=== PATIENT | female | born 1985 | race African-American/Black ===

== ENCOUNTER 2016-11-01 17:25 | Emergency (ER) | payer SELFPAY ==
--- NOTE | 2016-11-01 17:50 | ER Document Report ---
ED GI/ - General Chief Complaint: Vaginal Bleeding Stated Complaint: VAGINAL BLEEDING Information source: Patient TRAVEL OUTSIDE OF THE [place] IN LAST 30 DAYS: No - HPI Patient complains to provider of: Vaginal bleeding Onset: Other - 3 days Timing/Duration: Sudden, Intermittent Quality of pain: No pain Notes: 11/01/16 19:28 Patient is a 31-year-old female who presents to the emergency room complaining of vaginal spotting, she had a regular period earlier in the month, and over the past week has had some spotting, she denies any pain, the spotting started after having intercourse she denies painful intercourse, no injury or trauma, no pain or burning with urination, denies being - Related Data Allergies/Adverse Reactions: acetaminophen [From Percocet] Allergy (Verified 11/01/16 17:28) oxycodone HCl [From Percocet] Allergy (Verified 11/01/16 17:28) Past Medical History - General Information source: Patient Last Menstrual Period: 10/20/2016-10/28/2016 - Social History Smoking Status: Unknown if Ever Smoked Family History: Reviewed & Not Pertinent Patient has suicidal ideation: No Patient has homicidal ideation: No Renal/ Medical History: Denies: Hx Peritoneal Dialysis - Immunizations Hx Diphtheria, Pertussis, Tetanus Vaccination: Yes Review of Systems - Review of Systems Constitutional: No symptoms reported EENT: No symptoms reported Cardiovascular: No symptoms reported Respiratory: No symptoms reported Gastrointestinal: No symptoms reported Genitourinary: No symptoms reported Female Genitourinary: See HPI Musculoskeletal: No symptoms reported Skin: No symptoms reported Hematologic/Lymphatic: No symptoms reported Neurological/Psychological: No symptoms reported -: Yes All other systems reviewed and negative Physical Exam - Vital signs Vitals: Temp Pulse Resp BP Pulse Ox 98.3 F 75 16 151/76 H 99 11/01/16 17:29 11/01/16 17:29 11/01/16 17:29 11/01/16 17:29 11/01/16 17:29 - Notes Notes: - General General appearance: Appears well, Alert In distress: None - HEENT Head: Normocephalic, Atraumatic Eyes: Normal Conjunctiva: Normal Extraocular movements intact: Yes Eyelashes: Normal Pupils: PERRL - Respiratory Respiratory status: No respiratory distress - Cardiovascular Rhythm: Regular - Abdominal Inspection: Normal - Back Back: Normal - Extremities General upper extremity: Normal inspection General lower extremity: Normal inspection - Neurological Neuro grossly intact: Yes Orientation: AAOx4 [place] Coma Scale Eye Opening: Spontaneous [place] Coma Scale Verbal: Oriented [place] Coma Scale Motor: Obeys Commands [place] Coma Scale Total: 15 - Psychological Associated symptoms: Normal affect, Normal mood - Skin Skin Temperature: Warm Skin Moisture: Dry Skin Color: Normal Course - Vital Signs Vital signs: Temp Pulse Resp BP Pulse Ox 98.3 F 75 16 151/76 H 99 11/01/16 17:29 11/01/16 17:29 11/01/16 17:29 11/01/16 17:29 11/01/16 17:29 - Laboratory Result Diagrams: 11/01/16 18:28 11/01/16 18:28 Laboratory results interpreted by me: 11/01/16 11/01/16 11/01/16 18:28 18:28 18:28 WBC 18.4 H Absolute Neutrophils 13.2 H Chloride 108 H Urine Blood LARGE H Discharge - Discharge Clinical Impression: Dysfunctional uterine bleeding Condition: Stable Disposition: HOME, SELF-CARE Instructions: Dysfunctional Uterine Bleeding ([facility]), [facility]-Ship Jo[employer] Doctors Additional Instructions: Follow up with your primary care provider and SPORTS EQUIPMENT REPAIRER in one to 2 days. Return to the emergency room immediately if symptoms worsen or any additional concerns.
[2016-11-01 18:46] LABS: APPEARANCE,URINE SLIGHTLY-CLOUDY; BILIRUBIN,URINE NEGATIVE (NEGATIVE); GLUCOSE, URINE NEGATIVE (NEGATIVE); KETONES,URINE NEGATIVE (NEGATIVE); LEUKOCYTE ESTERASE,URINE NEGATIVE (NEGATIVE); NITRITE,URINE NEGATIVE (NEGATIVE); PROTEIN,URINE NEGATIVE (NEGATIVE); URINE SPECIFIC GRAVITY 1.015; UROBILINOGEN,URINE NEGATIVE mg/dL (<2.0)
[2016-11-01 18:50] LABS: ABSOLUTE BASOPHILS # (AUTO) 0.1 10^3/uL (0.0-0.2); ABSOLUTE EOSINOPHILS # (AUTO) 0.4 10^3/uL (0.0-0.6); ABSOLUTE LYMPHOCYTES (AUTO) 3.6 10^3/uL (0.5-4.7); ABSOLUTE NEUT (AUTO) 13.2 10^3/uL (1.7-8.2); BASOPHILS % (AUTO) 0.3 % (0-2); EOSINOPHILS % (AUTO) 2.4 % (0-6); HEMATOCRIT 43.6 % (36.0-47.0); HEMOGLOBIN 14.1 g/dL (12.0-15.5); HGB HCT DIFFERENCE -1.3; LYMPHOCYTES % (AUTO) 19.7 % (13-45); MEAN CORPUSCULAR HEMOGLOBIN 29.8 pg (27.0-33.4); MEAN CORPUSCULAR HGB CONC 32.3 g/dL (32.0-36.0); MEAN CORPUSCULAR VOLUME 92 fl (80-97); MONOCYTES % (AUTO) 5.6 % (3-13); RED BLOOD COUNT 4.73 10^6/uL (3.72-5.28); WHITE BLOOD COUNT 18.4 10^3/uL (4.0-10.5)
[2016-11-01 19:08] LABS: ALANINE AMINOTRANSFERASE 29 U/L (9-52); ALBUMIN 4.2 g/dL (3.5-5.0); ALKALINE PHOSPHATASE 92 U/L (38-126); ANION GAP 10 (5-19); ASPARTATE AMINO TRANSFERASE 19 U/L (14-36); BILIRUBIN,DIRECT 0.4 mg/dL (0.0-0.4); BILIRUBIN,TOTAL 1.1 mg/dL (0.2-1.3); BLOOD UREA NITROGEN 14 mg/dL (7-20); CALCIUM 9.7 mg/dL (8.4-10.2); CARBON DIOXIDE 22 mmol/L (22-30); CHLORIDE 108 mmol/L (98-107); CREATININE RESULT 0.88 mg/dL (0.52-1.25); GLUCOSE 82 mg/dL (75-110); POTASSIUM 4.3 mmol/L (3.6-5.0); SODIUM 140.1 mmol/L (137-145); TOTAL PROTEIN 7.5 g/dL (6.3-8.2)
[2016-11-01 20:16] VITALS: BP 126/78
== END 2016-11-01 19:30 | disposition home or self-care (01) ==
LOC: ER 17:25
DX: N93.8 Other specified abnormal uterine and vaginal bleeding (principal); Z88.6 Allergy status to analgesic agent
CPT/HCPCS: 36415; 80053; 81001; 81025; 85025; 99284

== ENCOUNTER 2017-12-19 03:09 | Emergency (ER) | payer SELFPAY ==
[2017-12-19 03:15] VITALS: BP 148/84
--- NOTE | 2017-12-19 03:45 | ER Document Report ---
ED General - General Chief Complaint: Swelling Stated Complaint: FACIAL SWELLING Time Seen by Provider: 12/19/17 03:34 Notes: Patient is a 32-year-old female presents with complaint of swelling left side of his face is more around the left eye. Eyeball itself is not painful and she does not have any pain with movement of the eyeball. She first noticed swelling yesterday. She will be itching over the area. On the areas more red and swollen. No purulent drainage from the eye. No redness to the eye. No recent skin breakdown that she is aware of. No exposure to any new medications or foods. No other complaints at this time. No dental pain. TRAVEL OUTSIDE OF THE [place] IN LAST 30 DAYS: No - Related Data Allergies/Adverse Reactions: acetaminophen [From Percocet] Allergy (Verified 11/01/16 17:28) oxycodone HCl [From Percocet] Allergy (Verified 11/01/16 17:28) Past Medical History - Social History Smoking Status: Never Smoker Chew tobacco use (# tins/day): No Frequency of alcohol use: None Drug Abuse: None Family History: Reviewed & Not Pertinent Patient has suicidal ideation: No Patient has homicidal ideation: No Renal/ Medical History: Denies: Hx Peritoneal Dialysis - Immunizations Hx Diphtheria, Pertussis, Tetanus Vaccination: Yes Review of Systems - Review of Systems Notes: My Normal Review Basic REVIEW OF SYSTEMS: CONSTITUTIONAL : Denies fever, chills, or sweats. Denies recent illness. EENT: swelling on the left side of face. CARDIOVASCULAR: Denies chest pain. Respiratory: No difficulty breathing. Neuro: Denies headache. Denies weakness or paralysis or loss of use of either side. Denies problems with gait or speech. Denies sensory or motor loss. PSYCHIATRIC: Denies anxiety or stress or depression. ALL OTHER SYSTEMS REVIEWED AND NEGATIVE. Physical Exam - Vital signs Vitals: Temp Pulse Resp BP Pulse Ox 98.6 F 71 20 148/84 H 97 12/19/17 03:14 12/19/17 03:14 12/19/17 03:14 12/19/17 03:14 12/19/17 03:14 - Notes Notes: General Appearance: Well nourished, alert, cooperative, no acute distress, no obvious discomfort. Well-appearing. Vitals: reviewed, See vital signs table. Head: Patient has a small amount of swelling and redness on the face that is around the lateral aspect and inferior aspect of the left eye. The eye itself is not red or swollen. Redness and swelling is only on the skin around the orbit of the eye. Patient does not have any pain with extraocular movement. No purulent drainage. Eyes: PERRL, EOMI, Conjuctiva clear Neck: Supple, no neck tenderness, No thyromegaly Mouth: No significant dental cavities. No swelling intraorally. Skin: warm, dry, appropriate color, no rash Neuro: speech clear, oriented x 3, normal affect, responds appropriately to questions. Course - Re-evaluation Re-evalutation: 12/19/17 05:12 Patient's findings consistent with an early periorbital cellulitis. She has no pain with extraocular motion. I suspect this probably is a periorbital cellulitis however it is possible this could just be a localized allergic reaction; however, she is not having itching or redness anywhere else on her body. She is not aware of any exposures that could cause allergic reaction. We therefore will treat her with clindamycin. I strongly encouraged her return to ER if she is spreading swelling or redness, pain with movement of the eye, or she feels unwell. Patient agrees with plan will be discharged home. Dictation of this chart was performed using voice recognition software; therefore, there may be some unintended grammatical errors. - Vital Signs Vital signs: Temp Pulse Resp BP Pulse Ox 98.6 F 71 20 148/84 H 97 12/19/17 03:14 12/19/17 03:14 12/19/17 03:14 12/19/17 03:14 12/19/17 03:14 Discharge - Discharge Clinical Impression: Periorbital cellulitis of left eye Condition: Good Disposition: HOME, SELF-CARE Additional Instructions: Please take the antibiotic as prescribed. Please return to the ER immediately if you have spreading redness, increased swelling, or any pain with movement of the eye. Follow up wiht a doctor in 2-3 days for reevaluation. Prescriptions: Clindamycin HCl 300 mg PO ASDIR #56 capsule
[2017-12-19] MEDS ORDERED: CLINDAMYCIN HCL 150 MG CAPSULE PO ONE (03:46)
== END 2017-12-19 04:06 | disposition home or self-care (01) ==
LOC: ER 03:09
DX: L03.213 Periorbital cellulitis (principal)
CPT/HCPCS: 99283

== ENCOUNTER 2017-12-23 18:24 | Emergency (ER) | payer SELFPAY ==
[2017-12-23 19:03] VITALS: BP 138/77
--- NOTE | 2017-12-23 19:03 | ER Document Report ---
ED Skin Rash/Insect Bite/Abscs - General Chief Complaint: Itching Stated Complaint: FACIAL/CHEST ITCHING/BURNING Time Seen by Provider: 12/23/17 18:56 Mode of Arrival: Ambulatory Information source: Patient Notes: 32-year-old female presents to ED for complaint of burning and itching to the face and chest and her lips. She was seen on 19 December for complaint of swelling to the left side of her face more around the left eye. There is no swelling pain or redness around the left eye. I do not see any redness or rash to the face or chest or lips. I do not see any swelling to the face lips or chest. She is on clindamycin that was prescribed on 19 December. TRAVEL OUTSIDE OF THE [place] IN LAST 30 DAYS: No - HPI Patient complains to provider of: Other Onset: Other Quality of pain: Burning Severity: Moderate Pain Level: 3 Skin Character: No: Erythema, Rash, Swelling, Tenderness Quality of rash: Itchy, Burning Identify cause: No Exacerbated by: Denies Relieved by: Denies Similar symptoms previously: Yes Recently seen / treated by doctor: Yes - Related Data Allergies/Adverse Reactions: acetaminophen [From Percocet] Allergy (Verified 12/23/17 18:26) oxycodone HCl [From Percocet] Allergy (Verified 12/23/17 18:26) Past Medical History - General Information source: Patient - Social History Smoking Status: Never Smoker Cigarette use (# per day): No Chew tobacco use (# tins/day): No Smoking Education Provided: No Frequency of alcohol use: None Drug Abuse: Marijuana Occupation: None Lives with: Family Family History: CVA, DM, Hyperlipidemia, Hypertension, Malignancy. denies: Arthritis, CAD, COPD, Thyroid Disfunction Patient has suicidal ideation: No Patient has homicidal ideation: No - Past Medical History Cardiac Medical History: Reports: None Pulmonary Medical History: Reports: None EENT Medical History: Reports: None Neurological Medical History: Reports: None Endocrine Medical History: Reports: None Renal/ Medical History: Reports: None Malignancy Medical History: Reports: None GI Medical History: Reports: None Musculoskeletal Medical History: Reports None Skin Medical History: Reports None Psychiatric Medical History: Reports: None Traumatic Medical History: Reports: None Infectious Medical History: Reports: None Surgical Hx: Negative Past Surgical History: Reports: None - Immunizations Immunizations up to date: Yes Hx Diphtheria, Pertussis, Tetanus Vaccination: Yes Review of Systems - Review of Systems Constitutional: No symptoms reported EENT: No symptoms reported Cardiovascular: No symptoms reported Respiratory: No symptoms reported Gastrointestinal: No symptoms reported Genitourinary: No symptoms reported Female Genitourinary: No symptoms reported Musculoskeletal: No symptoms reported Skin: Other - Burning and itching to the face and chest. denies: Change in color Hematologic/Lymphatic: No symptoms reported Neurological/Psychological: No symptoms reported -: Yes All other systems reviewed and negative Physical Exam - Vital signs Vitals: Temp Pulse Resp BP Pulse Ox 98.5 F 89 14 138/77 H 98 12/23/17 18:32 12/23/17 18:32 12/23/17 18:32 12/23/17 18:32 12/23/17 18:32 Interpretation: Normal - General General appearance: Appears well, Alert - HEENT Head: Normocephalic, Atraumatic. No: Other - No rash, no erythema, no swelling noted Eyes: Normal Conjunctiva: Normal Cornea: Normal Eyelashes: Normal Pupils: PERRL Ears: Normal External canal: Normal Tympanic membrane: Normal Sinus: Normal Nasal: Normal Mouth/Lips: Normal Mucous membranes: Normal Pharynx: Normal Neck: Normal - Respiratory Respiratory status: No respiratory distress Chest status: Nontender Breath sounds: Normal Chest palpation: Normal - Cardiovascular Rhythm: Regular Heart sounds: Normal auscultation Murmur: No - Abdominal Inspection: Normal Distension: No distension Bowel sounds: Normal Tenderness: Nontender Organomegaly: No organomegaly - Back Back: Normal, Nontender - Extremities General upper extremity: Normal inspection, Nontender, Normal color, Normal ROM , Normal temperature General lower extremity: Normal inspection, Nontender, Normal color, Normal ROM , Normal temperature, Normal weight bearing. No: Bárbara's sign - Neurological Neuro grossly intact: Yes Cognition: Normal Orientation: AAOx4 [place] Coma Scale Eye Opening: Spontaneous Melanie Coma Scale Verbal: Oriented Melanie Coma Scale Motor: Obeys Commands [place] Coma Scale Total: 15 Speech: Normal Motor strength normal: LUE, RUE, LLE, RLE Sensory: Normal - Psychological Associated symptoms: Normal affect, Normal mood - Skin Skin Temperature: Warm Skin Moisture: Dry Skin Color: Normal Irregularity with: Tenderness - Face Course - Re-evaluation Re-evalutation: 12/23/17 19:12 There was no redness, no rash, and no swelling to the face or chest. I consulted another ANSWERING SERVICE OPERATOR to go and observe and they agreed there is no redness, swelling, or rash. Patient was instructed to stop the clindamycin as she is no longer having any pain or discomfort to her left eye or skin around her eye. Patient was instructed to follow-up with the lockmaker if she does start having any pain swelling or irritation around her eye. Patient instructed to take Benadryl for her itching. Patient verbalized understanding and agreement with treatment plan. - Vital Signs Vital signs: Temp Pulse Resp BP Pulse Ox 98.5 F 89 14 138/77 H 98 12/23/17 18:32 12/23/17 18:32 12/23/17 18:32 12/23/17 18:32 12/23/17 18:32 Discharge - Discharge Clinical Impression: Itching to face and chest Condition: Stable Disposition: HOME, SELF-CARE Instructions: Family Physicians / Practices Additional Instructions: You have complained of redness burning and itching to your face and chest There is no redness, rash, or swelling noted to your face or chest. The clindamycin was given for a cellulitis to the left eye, you state you are no longer having pain or discomfort around the eye so stopped the clindamycin. Diphenhydramine The use of diphenhydramine (Benadryl) has been recommended to control allergic symptoms. The 25 mg strength is available over- the-counter, as well as the elixir. This antihistamine is used for many symptoms. It's useful for itching, watering eyes and nose, allergic swelling, hives, and insect stings. The medication can be repeated four times daily. Age Elixir (12.5 mg/tsp) 25 mg pill 1 yr 1/4 tsp 2-3 yr 1/2 tsp 4-8 yr 1 tsp 9-14 yr 2 tsp one tab adult 1-2 tabs Antihistamines may cause drowsiness, especially with the first dose. Do not operate machinery or drive while under the effects of the medication. Do not combine the medication with alcohol, or with any other medication without talking to your doctor. Cool cloths may help your burning and itching to your face. Low up with ophthalmology if you again have burning and pain around her left eye. FOLLOW-UP CARE: If you have been referred to a physician for follow-up care, call the physician s office for an appointment as you were instructed or within the next two days. If you experience worsening or a significant change in your symptoms, notify the physician immediately or return to the Emergency Department at any time for re-evaluation. Forms: Elevated Blood Pressure Referrals: BLAS RIVERA MD [ACTIVE STAFF] - Follow up as needed
== END 2017-12-23 19:21 | disposition home or self-care (01) ==
LOC: ER 18:24
DX: L29.9 Pruritus, unspecified (principal); Z88.6 Allergy status to analgesic agent
CPT/HCPCS: 99282

== ENCOUNTER 2020-03-01 07:02 | Emergency (ER) | payer SELFPAY ==
[2020-03-01] MEDS ORDERED: KETOROLAC TROMETHAMINE INJ/PF 30 MG/1 ML SDV IV ONE (07:57)
--- NOTE | 2020-03-01 08:03 | ER Document Report ---
ED General - General Chief Complaint: Chest Pain Stated Complaint: CHEST PAINS Time Seen by Provider: 03/01/20 07:28 TRAVEL OUTSIDE OF THE [place] IN LAST 30 DAYS: No - HPI Notes: Chief complaint: Chest pain History of present illness: 34-year-old female with no known prior history of cardiac disease but several prior visits here for chest wall pain presents today for evaluation of chest discomfort. States she awakened with discomfort around 2:30 AM and had difficulty going back to sleep because of this. Presently rates it as 4/10 and describes it as pressure sensation in center of chest without ra diation which is aggravated by touching the area or rolling over to her side. She denies any associated diaphoresis, nausea/vomiting, dyspnea, cough or hemoptysis. She denies any known recent trauma or unaccustomed activity. She does note that she took up long automobile trip about a week ago. Patient is currently on no prescription medications. She reports allergies to acetaminophen and oxycodone. Patient denies known history of hypertension, hyperlipidemia, diabetes mellitus or thromboembolic disease. Family history is remarkable for brother in his mid 40s who is had bypass surgery. HEART SCORE: HISTORY 1 ECG 0 AGE 0 RISK FACTORS 2 TROPONIN 0 TOTAL: 3 If HEART score is = 3 AND both tronponin measurments are normal, the 30 day risk of a major adverse cardiac event (all-cause mortality, myocardia infarction or need for coronary revscularization) is < 1% (Sensitivity 100%, NPV 100%). PERC SCORE H no hormone administration A Age<50 D DVT/PE previously C no hemoptysis L no leg swelling unilaterally O O2 sat >95% T No Tachycardia S recent travel - Related Data Allergies/Adverse Reactions: acetaminophen [From Percocet] Allergy (Verified 12/23/17 18:26) oxycodone HCl [From Percocet] Allergy (Verified 12/23/17 18:26) Past Medical History - General Information source: Patient, [facility] Records - Social History Smoking Status: Current Some Day Smoker Chew tobacco use (# tins/day): No Frequency of alcohol use: Occasional Drug Abuse: None Family History: CAD, CVA, DM, Hyperlipidemia, Hypertension, Malignancy. denies: Arthritis, COPD, Thyroid Disfunction - Past Medical History Cardiac Medical History: Reports: None Endocrine Medical History: Denies: Hx Diabetes Mellitus Type 1, Hx Diabetes Mellitus Type 2 Renal/ Medical History: Denies: Hx Peritoneal Dialysis Past Surgical History: Reports: None - Immunizations Immunizations up to date: Yes Hx Diphtheria, Pertussis, Tetanus Vaccination: Yes Review of Systems - Review of Systems Notes: Constitutional: Negative for fever. HENT: Negative for sore throat. Eyes: Negative for visual changes. Cardiovascular: As per HPI. Respiratory: Negative for shortness of breath. Gastrointestinal: Negative for abdominal pain, vomiting or diarrhea. Genitourinary: Negative for dysuria. Musculoskeletal: Negative for back pain. Skin: Negative for rash. Neurological: Negative for headaches, weakness or numbness. 10 point ROS negative except as marked above and in HPI. Physical Exam - Vital signs Vitals: Temp Pulse Resp BP Pulse Ox 98.2 F 73 20 169/89 H 98 03/01/20 07:17 03/01/20 07:17 03/01/20 07:17 03/01/20 07:17 03/01/20 07:17 - Notes Notes: GENERAL: Very obese female of approximately stated age appearing in no acute distress. SKIN: Good turgor no rashes. HEAD: Normocephalic atraumatic. EYES: PERRLA. EOMI. Conjunctivae and sclerae clear. EARS: CANALS AND TMS CLEAR. NOSE: CLEAR. MOUTH: Moist mucosa. Good dentition. No stridor or edema. No drooling. NECK: Supple. No masses or thyromegaly. No adenopathy. Carotids 2+ without bruits. No JVD. BACK: Symmetrical without tenderness. CHEST: Pain is EXACTLY reproduced by palpation along right sternal border. Respirations unlabored. Breath sounds clear and symmetrical. HEART: Regular rhythm. No murmur gallop or rub. ABDOMEN: Soft nontender without masses, organomegaly or rebound. Bowel sounds normally active. No bruits. GENITALIA: Deferred. EXTREMITIES: No edema. No calf tenderness. Cap refill less than 1.5 seconds. Dorsalis pedis and posterior tibial pulses 3+ and symmetrical. NEUROLOGICAL: GCS 15. Alert and oriented x3. Normal gait. Fluent speech. Cranial nerves II through XII intact. Sensorimotor and cerebellar normal. Normal tone. PSYCHIATRIC: Appropriate affect. Course - Re-evaluation Re-evalutation: 03/01/20 10:29 Normal vital signs and oxygenation. Reexamination shows some persistent ten derness of chest wall with no other significant new findings. Her first troponin was normal. Her d-dimer was normal. White blood cell count mildly elevated. Chemistry profile unremarkable. Urine drug screen positive for THC. Patient is asymptomatic currently after receiving 1 dose of Toradol. Plan is to obtain a repeat 3-hour troponin level. If this is negative I would feel that she would be stable for outpatient follow-up with primary care. 03/01/20 12:25 Second troponin is normal. Heart score of 3. He has reproducible chest wall pain. I think she is stable for outpatient follow-up with primary care and I told her that she will probably also want to be seen by map editor for tr randmill testing which can be arranged by her primary care physician. 03/01/20 12:27 Findings, clinical impression and plan of treatment have been discussed with patient/family. Understanding of current findings and recommendations has been acknowledged by them and there is agreement regarding disposition and follow-up. - Vital Signs Vital signs: Temp Pulse Resp BP Pulse Ox 98.2 F 73 20 139/88 H 100 03/01/20 07:17 03/01/20 07:17 03/01/20 11:01 03/01/20 11:01 03/01/20 10:01 - Laboratory Result Diagrams: 03/01/20 08:16 03/01/20 08:16 Laboratory results interpreted by me: 03/01/20 03/01/20 03/01/20 08:16 08:16 08:33 WBC 13.4 H Absolute Neuts (auto) 8.5 H Absolute Eos (auto) 0.7 H Potassium 5.2 H Urine Blood SMALL H Discharge - Discharge Clinical Impression: Chest pain, Blood pressure elevated without history of HTN Condition: Stable Disposition: HOME, SELF-CARE Additional Instructions: Chest Pain of Unclear Cause The exact cause of your chest pain isn't clear. Fortunately, there is no evidence of a dangerous medical condition. Further testing may be required to find the source of the pain. Most often, we find that this pain is coming from the chest wall -- the mu scles or rib joints in the chest. But chest pain can come from the lung and lung lining, the esophagus, the heart valves or heart lining, and even the stomach or gallbladder. Rest. Eat lightly until the pain is gone. We may prescribe medicine for pain and inflammation. You should call the physician immediately if the pain radiates to the shoulder, jaw or arms; if you start to run a fever or develop a cough; or if you develop shortness of breath, or other new or alarming symptoms. Return here as needed for new or worsening symptoms: Pain that is worsening or unimproved Uncontrolled vomiting High fever or shaking chills Overall worsening See your primary care doctor within the next 3 to 5 days for follow-up evaluation and referral to a map editor for treadmill testing. You may take ibuprofen or Advil as necessary for your pain. Forms: Smoking Cessation Education, Elevated Blood Pressure Referrals: [facility] [Provider Group] - Follow up as needed KAREN COMER MD [ACTIVE STAFF] - Follow up as needed
--- NOTE | 2020-03-01 08:32 | EKG REPORT ---
SEVERITY:- NORMAL ECG - SINUS RHYTHM : Confirmed by: Noemi Ochoa MD 01-Mar-2020 08:31:49
[2020-03-01 08:33] LABS: ABSOLUTE BASOPHILS # (AUTO) 0.1 10^3/uL (0.0-0.2); ABSOLUTE EOSINOPHILS # (AUTO) 0.7 10^3/uL (0.0-0.6); ABSOLUTE LYMPHOCYTES (AUTO) 3.3 10^3/uL (0.5-4.7); ABSOLUTE MONOCYTES (AUTO) 0.8 10^3/uL (0.1-1.4); ABSOLUTE NEUT (AUTO) 8.5 10^3/uL (1.7-8.2); BASOPHILS % (AUTO) 0.8 % (0-2); EOSINOPHILS % (AUTO) 5.2 % (0-6); HEMATOCRIT 41.4 % (36.0-47.0); LYMPHOCYTES % (AUTO) 24.6 % (13-45); MEAN CORPUSCULAR HEMOGLOBIN 30.7 pg (27.0-33.4); MEAN CORPUSCULAR HGB CONC 33.9 g/dL (32.0-36.0); MEAN CORPUSCULAR VOLUME 91 fl (80-97); MONOCYTES % (AUTO) 5.7 % (3-13); PLATELET COUNT 256 10^3/uL (150-450); RED BLOOD COUNT 4.57 10^6/uL (3.72-5.28); RED CELL DISTRIBUTION WIDTH 13.2 % (11.5-14.0); SEGMENTED NEUTROPHILS % (AUTO) 63.7 % (42-78); TOTAL CELLS COUNTED % (AUTO) 100 %; WHITE BLOOD COUNT 13.4 10^3/uL (4.0-10.5)
[2020-03-01 08:51] LABS: ALBUMIN 4.1 g/dL (3.5-5.0); ALKALINE PHOSPHATASE 92 U/L (38-126); ANION GAP 8 (5-19); ASPARTATE AMINO TRANSFERASE 33 U/L (14-36); BILIRUBIN,DIRECT 0.4 mg/dL (0.0-0.4); BILIRUBIN,TOTAL 0.7 mg/dL (0.2-1.3); BLOOD UREA NITROGEN 14 mg/dL (7-20); CALCIUM 9.1 mg/dL (8.4-10.2); CARBON DIOXIDE 24 mmol/L (22-30); CHLORIDE 106 mmol/L (98-107); GLUCOSE 99 mg/dL (75-110); POTASSIUM 5.2 mmol/L (3.6-5.0); TOTAL PROTEIN 7.4 g/dL (6.3-8.2)
[2020-03-01 08:56] LABS: INTERNATIONAL RATION (INR) 0.92; PROTHROMBIN TIME 12.6 SEC (11.4-15.4)
--- NOTE | 2020-03-01 08:56 | RADIOLOGY REPORT (SQ) ---
EXAM DESCRIPTION: CHEST SINGLE VIEW IMAGES COMPLETED DATE/TIME: 03/01/2020 8:25 am REASON FOR STUDY: cp COMPARISON: 09/29/2015 EXAM PARAMETERS: NUMBER OF VIEWS: One view. TECHNIQUE: Single frontal radiographic view of the chest acquired. RADIATION DOSE: NA LIMITATIONS: Overlying breast tissue. FINDINGS: LUNGS AND PLEURA: No opacities, masses or pneumothorax. No pleural effusion. MEDIASTINUM AND HILAR STRUCTURES: No masses. Contour normal. HEART AND VASCULAR STRUCTURES: Heart normal in size. Normal vasculature. BONES: No acute findings. HARDWARE: None in the chest. OTHER: No other significant finding. IMPRESSION: NO ACUTE RADIOGRAPHIC FINDING IN THE CHEST. TECHNICAL DOCUMENTATION: JOB ID: [id number] [employer]- All Rights Reserved Reading location - IP/workstation name: [email or web address]
[2020-03-01 08:57] LABS: PARTIAL THROMBOPLASTIN TIME 31.7 SEC (23.5-35.8)
[2020-03-01 08:58] LABS: APPEARANCE,URINE CLEAR; BILIRUBIN,URINE NEGATIVE (NEGATIVE); COLOR,URINE STRAW; GLUCOSE, URINE NEGATIVE (NEGATIVE); KETONES,URINE NEGATIVE (NEGATIVE); PROTEIN,URINE NEGATIVE (NEGATIVE); UROBILINOGEN,URINE NEGATIVE mg/dL (<2.0)
[2020-03-01 08:59] LABS: D-DIMER 0.31 ug/mL (0.00-0.50)
[2020-03-01 09:21] LABS: URINE AMPHETAMINES SCREEN NEGATIVE; URINE BARBITURATES SCREEN NEGATIVE; URINE BENZODIAZEPINES SCREEN NEGATIVE; URINE COCAINE SCREEN NEGATIVE; URINE METHADONE SCREEN NEGATIVE; URINE PHENCYCLIDINE SCREEN NEGATIVE
[2020-03-01 09:22] LABS: URINE MARIJUANA (THC) SCREEN UNCONFIRMED POSITIVE
[2020-03-01 12:37] VITALS: BP 182/80
== END 2020-03-01 12:38 | disposition home or self-care (01) ==
LOC: ER 07:02
DX: R07.9 Chest pain, unspecified (principal); R03.0 Elevated blood-pressure reading, without diagnosis of hypertension; I25.10 Atherosclerotic heart disease of native coronary artery without angina pectoris; Z88.8 Allergy status to other drugs, medicaments and biological substances; F17.200 Nicotine dependence, unspecified, uncomplicated
CPT/HCPCS: 93005; 99285; 96374; 36415; 83735; 85025; 85610; 85730; 80053; 81001; 84484; 80307; 85379; 71045; 93010; J1885